=== PATIENT | male | born 2000 ===

== ENCOUNTER 2021-06-15 10:40 | Emergency (ER) | payer SELFPAY ==
[~2021-06-15] VITALS: Ht 177.8 cm; Wt 81.6 kg
[2021-06-15 11:27] VITALS: BP 155/85
[2021-06-15] MEDS ORDERED: TETRACAINE HCL 0.5% OPTH(EYE) SOLN 4ML EACHEYE ONE (11:45)
[2021-06-15] MEDS ORDERED: FLUORESCEIN SOD OPTH TEST STRIP OP ONE (11:45)
[2021-06-15] MEDS ORDERED: CIP03OS EACHEYE (11:49)
== END 2021-06-15 12:09 | disposition home or self-care (01) ==
LOC: ER 10:40
DX: H10.32 Unspecified acute conjunctivitis, left eye (principal)